=== PATIENT | female | born 1985 | race Caucasian/White ===

== ENCOUNTER 2024-05-08 10:19 | Inpatient (IN) | payer OTHER, SELFPAY ==
[2024-05-08] VITALS (25 sets, daily range): BP systolic 119–152; BP diastolic 59–86; PULSE 73–100; RESP 12–16; TEMP 36.1–37.4; O2SAT 90–100; BMI 37.9; BMI 40.7
[2024-05-08 10:57] LABS: Absolute Lymphocyte Count 1.26 X10^3/uL (0.83-4.51); Absolute Neutrophil Count 5.9 X10^3/uL (2.0-7.7); Basophil# 0.03 X10^3/uL; Basophil% 0.4 % (0-1); Eosinophil# 0.04 X10^3/uL; Eosinophils% 0.5 % (0-5); Hematocrit 30.3 % (37-47); Lymphocyte # 1.26 X10^3/ul (0.83-4.51); Lymphocyte % 16.2 % (19-41); Mean Corpuscular Hgb 28.9 pg (27.0-32.0); Mean Corpuscular Volume 87.6 fL (81-99); Mean Platelet Vol. 12.7 fl (6.2-12.0); Monocyte# 0.47 X10^3/uL; Monocyte% 6.1 % (0-10); NRBC Flagged by Analyzer 0 % (0-5); Neutrophil # 5.89 X10^3/uL (2.7-7.7); Neutrophil % 75.9 % (47-70); Platelet Count 210 K/mm3 (150-450); RBC Distribution Width SD 43.6 fl (35.1-43.9); Red Blood Count 3.46 M/mm3 (4.2-5.4); White Blood Count 7.8 K/mm3 (4.4-11.0)
[2024-05-08] MEDS: Lactated Ringers 1,000 ML 999 ML IV (11:00)
[2024-05-08] MEDS: Acetaminophen 500 MG Tablet 1000 MG PO ×2 (11:30→17:58)
[2024-05-08] MEDS: Sodium Citrate/Citric Acid 30 ML UDC PO (11:31)
[2024-05-08 11:47] LABS: Syphilis Antibodies Non-reactive
[2024-05-08] MEDS: Cefazolin 2 GM in Syringe IV (12:09)
[2024-05-08] MEDS: Oxytocin 15 Units/NS 250ml 15 UNITS/250 ML IV.SOLN 83 UNITS IV (13:30)
[2024-05-08 14:39] LABS: Pathology Specimen OB SEE PATHOLOGY REPORT
[2024-05-08] MEDS: Ketorolac 30 MG/ML Syringe IV ×2 (15:26→21:23)
[2024-05-08] MEDS: 0.9% Saline Lock 10 ML Syringe IV (21:23)
[2024-05-09] VITALS (12 sets, daily range): BP systolic 118–149; BP diastolic 63–80; PULSE 78–97; RESP 14–16; TEMP 36.1–36.9; O2SAT 95–100
[2024-05-09] MEDS: Acetaminophen 500 MG Tablet 1000 MG PO ×4 (00:01→18:20)
[2024-05-09] MEDS: Enoxaparin 40 MG/0.4 ML Syringe SC ×3 (00:02→22:42)
[2024-05-09] MEDS: Ketorolac 30 MG/ML Syringe IV ×2 (03:13→10:01)
[2024-05-09 05:23] LABS: Hematocrit 29.3 % (37-47); Hemoglobin 9.6 g/dL (12.0-15.0); Mean Corp Hgb Conc 32.8 g/dL (32-36); Mean Corpuscular Hgb 28.8 pg (27.0-32.0); Mean Platelet Vol. 12.3 fl (6.2-12.0); Platelet Count 177 K/mm3 (150-450); RBC Distribution Width CV 14.4 % (11.6-14.6); RBC Distribution Width SD 45.6 fl (35.1-43.9); Red Blood Count 3.33 M/mm3 (4.2-5.4); White Blood Count 7.4 K/mm3 (4.4-11.0)
[2024-05-09] MEDS: Senna/Docusate Sodium 1 Tablet PO (10:00)
[2024-05-09] MEDS: 0.9% Saline Lock 10 ML Syringe IV (10:01)
[2024-05-09] MEDS: Ibuprofen 600 MG Tablet PO ×2 (15:47→22:44)
[2024-05-10] MEDS: Acetaminophen 500 MG Tablet 1000 MG PO ×2 (00:14→06:16)
[2024-05-10 02:30] VITALS: BP 123/61; PULSE 88; RESP 16; TEMP 36.6; O2SAT 97
[2024-05-10 02:37] VITALS: PULSE 87; O2SAT 96
[2024-05-10 02:38] VITALS: BP 123/61; PULSE 86
[2024-05-10] MEDS: Ibuprofen 600 MG Tablet PO (04:20)
[2024-05-10 08:00] VITALS: BP 138/74; PULSE 99; RESP 16; TEMP 36.5; O2SAT 98
[2024-05-10 08:06] VITALS: BP 138/74; PULSE 99; TEMP 36.5
== END 2024-05-10 08:55 | disposition home or self-care (01) | DRG 788 ==
PROVIDERS: Admitting Provider Obstetrics & Gynecology; Referring Provider Obstetrics & Gynecology; Visit Provider Obstetrics & Gynecology
PROC: 10D00Z1 Extraction of Products of Conception, Low, Open Approach (ICD-10-PCS; CPT 59514; principal; 2024-05-08 11:45)
DX: O32.1XX0 Maternal care for breech presentation, not applicable or unspecified (principal); O99.214 Obesity complicating childbirth; D25.2 Subserosal leiomyoma of uterus; E28.2 Polycystic ovarian syndrome; Z80.42 Family history of malignant neoplasm of prostate; Z80.1 Family history of malignant neoplasm of trachea, bronchus and lung; O69.81X0 Labor and delivery complicated by cord around neck, without compression, not applicable or unspecified; Z37.0 Single live birth; Z3A.39 39 weeks gestation of pregnancy; O34.13 Maternal care for benign tumor of corpus uteri, third trimester; O99.284 Endocrine, nutritional and metabolic diseases complicating childbirth; Z79.82 Long term (current) use of aspirin; O34.219 Maternal care for unspecified type scar from previous cesarean delivery
CPT/HCPCS: 59025; 85025; 85027; 86780; 86850; 86900; 86901; 88305; 99221; J7120; A4216; G0378